=== PATIENT | female | born 1945 | race Caucasian/White ===

== ENCOUNTER 2018-08-05 11:18 | Outpatient (CLI) | payer MEDICARE | END 2018-08-05 11:19 | disposition home or self-care (01) | LOC: BICMAMMO 11:18 | PROVIDERS: ATTEND Internal Medicine | DX: Z12.31 Encounter for screening mammogram for malignant neoplasm of breast (principal) | CPT/HCPCS: 77063; 77067 ==

== ENCOUNTER 2018-12-16 09:02 | Outpatient (CLI) | payer BC, MEDICARE ==
--- NOTE | 2018-12-16 10:04 | ULT ---
RIGHT BREAST ULTRASOUND: History: Right spontaneous nipple discharge. Comparison: Mammogram, 12-16-18, 08-05-18, 07-24-16 Technique: Multiplanar grayscale and color doppler images were obtained in a targeted ultrasound of t he retroareolar region of the right breast. FINDINGS: There is mild ectasia of the ducts beneath the nipple. No mass is seen within any of the ducts. No multani spicious mass or shadowing is seen. At the time of the ultrasound an exam was performed showing dark brown non-bloody nipple discharge from one duct. IMPRESSION: BIRADS category 2 - benign findings. Annual screening mammography is recommended. POS: TOÑA
== END 2018-12-16 09:03 | disposition home or self-care (01) ==
LOC: BICMAMMO 09:02
PROVIDERS: ATTEND Obstetrics & Gynecology
DX: N64.52 Nipple discharge (principal); R92.1 Mammographic calcification found on diagnostic imaging of breast
CPT/HCPCS: G0279

== ENCOUNTER 2019-05-30 20:00 | Observation (INO) | payer BC, MEDICARE ==
[2019-05-30] MEDS ORDERED: Aspirin 325 MG TAB ONE (21:53)
[2019-05-31] MEDS ORDERED: Senokot S 8.6-50 MG TAB PO PRN (00:37)
[2019-05-31] MEDS ORDERED: Acetaminophen 325 MG TAB PO PRN (00:37)
[2019-05-31 01:22] VITALS: BMI 25.8
--- NOTE | 2019-05-31 04:13 | HP ---
CHIEF COMPLAINT: Left-sided weakness and slurred speech. HISTORY OF PRESENT ILLNESS: Ms. Garsia is a 74-year-old female who was initially seen at [facility] for evaluation of left-sided numbness, tingling, and slurred speech. The patient reports these started about 1800 after she received some bad news via telephone. She reports that she noticed that her mouth initially felt like she was getting dental work, it was numb and tingly and then she noticed that the same sensation was down her left arm and leg. She sat down, called her daughter. Her daughter came over, noticed that she had a little bit of slurred speech and then her daughter decided to bring her to the hospital for further evaluation. The patient reports that she stumbled twice going out to the car because she said her left leg was very heavy. These sensations lasted on and off for couple hours and she reports during the exam that they have resolved. She reports the only symptom she has now is that she has a slight headache. CT scan in the other campus was done and had no acute findings. Her initial NIH score was 4. It is currently 0. The patient was transferred to [facility] for admission to Stroke Unit for further management. ALLERGIES: NONE. HOME MEDICATIONS: 1. Norvasc 5 mg p.o. once a day. 2. Estradiol 1 mg oral once a day. 3. Lexapro 10 mg p.o. once a day. 4. Cholestyramine 5.7 g once a day. She reports that she takes this as needed. PAST MEDICAL HISTORY: Pertinent for hypertension, anxiety, and Crohn disease, which she reports is well controlled with diet and then she takes the cholestyramine as needed. FAMILY HISTORY: Father did have a stroke. SOCIAL HISTORY: Lives at home alone. Has family close by. Denies any alcohol or smoking history. SURGICAL HISTORY: Lumpectomy, hysterectomy, bladder mesh, tubal ligation. REVIEW OF SYSTEMS: All systems reviewed and are negative unless mentioned in the HPI. PHYSICAL EXAMINATION: VITAL SIGNS: Blood pressure 172/91, pulse is 77, respirations are pO2 sats are 98% on room air. CONSTITUTIONAL: The patient is afebrile. She appears nontoxic. She is alert and oriented to person, place, and time. HEENT: Head is atraumatic and normocephalic. Eyes; eyelids are normal to inspection. Pupils are equally round and reactive to light. ENT; mouth exam is normal. Mucous membranes are moist. NECK: Normal range of motion. Trachea is midline. RESPIRATORY/CHEST: Breath sounds are clear. There is no sign of any respiratory distress. CARDIOVASCULAR: Regular heart rate and rhythm. Heart sounds are normal. ABDOMEN: No tenderness. Bowel sounds are heard. BACK: Normal inspection. Normal range of motion. EXTREMITIES: Upper extremities; normal range of motion. Motor strength is normal. Radial pulses are equal bilaterally. Lower extremities; normal sensation. Motor strength is normal. Sensation intact. Pedal pulses are equal bilaterally. NEUROLOGIC: The patient is alert and oriented to person, place, and time. There is no focal motor or sensory deficits. SKIN: Warm, dry, and normal in color. IMAGING DATA: EKG in the emergency room shows normal sinus rhythm, rate per minute 91. LAB RESULTS: White blood cell count is 8.5, hemoglobin 14, hematocrit is 42.6, platelets are 283. There is no BMP lab results available in chart. We will repeat these. ASSESSMENT AND PLAN: 1. Transient ischemic attack. We will obtain an MRI of the brain without contrast, carotid Dopplers, echocardiogram, lipids, TSH, stroke team evaluation. We will start aspirin and statin. 2. History of hypertension. We will restart home medications. We will trend. 3. History of Crohn disease, appears stable. Restart home medications as needed. 4. Anxiety. We will restart home medications. 5. Case discussed with Dr. Nicholson who agrees to plan. 6. Gastrointestinal and deep venous thrombosis prophylaxis have been started. 7. Hospital course is dependent on clinical findings. Job ID: [id number]
[2019-05-31 05:29] LABS: #Basophils 0.1 thou/uL (0.0-0.2); #Eosinphils 0.3 thou/uL (0.0-0.7); #Lymphocytes 2.6 thou/uL (1.20-3.40); #Monocytes 0.8 thou/uL (0.11-0.59); #Neutrophils 4.4 thou/uL (1.40-6.50); %Basophils 0.9 % (0.0-1.0); %Eosinophils 3.2 % (0.0-10.0); %Lymphocytes 32.1 % (21.0-51.0); %Monocytes 9.6 % (0.0-10.0); %Neutrophils 54.2 % (42.0-75.0); Hemoglobin 13.5 g/dL (12.0-16.0); Mean Corpuscular HGB CONC 34.6 g/dL (32.0-36.0); Mean Corpuscular Hemoglobin 32.3 pg (27.0-31.0); Mean Corpuscular Volume 93.4 fL (78.0-98.0); Mean Platelet Volume 7.8 fL (7.4-10.4); Platelet Count 264 thou/uL (130-400); RBC Distribution Width 11.4 % (11.5-14.5); Red Blood Cell (RBC) Count 4.18 mill/uL (4.20-5.40); White Blood Cell (WBC) Count 8.1 thou/uL (4.8-10.8)
[2019-05-31 05:49] LABS: ALT (SGPT) 8 U/L (8-55); AST (SGOT) 14 U/L (5-34); Albumin 3.7 g/dL (3.4-4.8); Alkaline Phosphatase 67 U/L (40-150); Anion Gap 11 mmol/L (10-20); BUN (Urea Nitrogen) 17 mg/dL (9.8-20.1); Bilirubin, Total 0.4 mg/dL (0.2-1.2); Calc. Creatinine Clearance 70 mL/min (70-130); Calcium 8.9 mg/dL (7.8-10.44); Carbon Dioxide 26 mmol/L (23-31); Cardiac Risk 4.2 (Less than 4.5); Chloride 107 mmol/L (98-107); Cholesterol 197 mg/dl (< 200 Desired); Estimated GFR-MDRD 73; Globulin 3.3 g/dL (2.4-3.5); Glucose 104 mg/dL (83-110); HDL Cholesterol 47 mg/dL (>60 Neg Risk); LDL Cholesterol, Calculated 118 mg/dL; Potassium 3.7 mmol/L (3.5-5.1); Sodium 140 mmol/L (136-145); Triglycerides 161 mg/dL (Less than 150)
--- NOTE | 2019-05-31 08:01 | ULT ---
EXAM: Carotid Doppler PROVIDED CLINICAL HISTORY: TIA COMPARISON: None FINDINGS: Grayscale and color Doppler sonography with spectral analysis was performed of the extracranial carot id system bilaterally. There is no evidence for a hemodynamically significant internal carotid artery stenosis by peak systolic velocity or ratio criteria. Antegrade flow is seen in the vertebral arteries. Nonspecific increase in peak systolic velocity demonstrated involving the left vertebral artery, which could reflect stenosis. IMPRESSION: No sonographic evidence for a hemodynamically significant internal carotid artery stenosis.
[2019-05-31] MEDS ORDERED: Famotidine 20 MG TAB PO SCH (09:00)
[2019-05-31] MEDS ORDERED: Amlodipine 5 MG TAB PO SCH (09:00)
[2019-05-31] MEDS ORDERED: Prevnar 13-Val Conj/PF 0.5 ML SYRINGE IM ONE (09:00)
[2019-05-31] MEDS ORDERED: Escitalopram Oxalate 10 mg Tablet PO SCH (09:00)
[2019-05-31] MEDS ORDERED: Aspirin 325 mg Enteric Coated Tablet PO SCH (09:00)
--- NOTE | 2019-05-31 10:49 | MRI ---
Exam: Brain MRI without contrast HISTORY: Transient ischemic attack. Left-sided numbness, starting last night. Symptoms have resolved. COMPARISON: None Correlation: Noncontrast head CT, [facility] 05/30/2019 FINDINGS: Calvarial marrow signal intensity: Appropriate T1 signal Gradient echo sequence: No hemorrhage Brain parenchyma: No mass, mass effect or midline shift. Brain volume, age-appropriate. Cortical rene-white matter differentiation: Preserved Restricted diffusion: Central arterial flow voids are maintained. Absent restricted diffusion White matter signal intensities: T2, FLAIR white matter hyperintensities due to chronic small vessel ischemic changes Sinuses: Adequate aeration of the paranasal sinuses and mastoid air cells. IMPRESSION: 1. Absent restricted diffusion. No acute infarct. 2. Chronic small vessel ischemic changes of the white matter.
[2019-05-31 16:15] VITALS: BP 136/71; TEMP 97.7
[2019-05-31] MEDS ORDERED: Atorvastatin Calcium 40 MG TAB PO SCH (21:00)
--- NOTE | 2019-06-01 05:52 | DIS ---
DATE OF ADMISSION: 05/30/2019 DATE OF DISCHARGE: 05/31/2019 CHIEF COMPLAINT ON ADMISSION: Left-sided numbness of the face, left upper extremity and lower extremity along with left-sided weakness. DISCHARGE DIAGNOSES: 1. Transient ischemic attack, MRI shows no evidence of acute cerebrovascular accident. 2. Hypertension. 3. Anxiety. 4. Crohn's disease, stable. BRIEF HOSPITAL COURSE: Ms. Garsia is a very pleasant 74-year-old female who presented with the above complaints that were resolving by the time she reached the hospital. 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 After she got off the phone, she experienced some left-sided facial tingling and numbness as if she had some dental work done. It began to spread down her left arm, and the patient states that she felt generally "unwell." She called her daughter who lives in an upstairs apartment, to check on her. Her symptoms began to worsen some and spread down to the left leg, which subsequently became weak. She stumbled several times getting up to the car, because her leg was "heavy." Her symptoms were brief, lasting only an hour or so, before completely resolving. She had no further recurrence. MRI of the brain was negative. Carotid Doppler was negative. Her echo is currently pending. She was seen by Physical therapy and Occupational therapy who could discern no deficits at all. She has ambulated the halls and feels back to her baseline. She has been initiated on aspirin and statin therapy, which she is tolerating well. TEST PENDING AT DISCHARGE: Echocardiogram. PRIMARY CARE PHYSICIAN: Dr. Brower. DISHARGE DISPOSITION: Home. DISCHARGE CONDITION: Stable. DISCHARGE INSTRUCTIONS AND FOLLOWUP: The patient's new home medications will be aspirin 81 mg daily along with Lipitor 10 mg at bedtime. I have stopped her estrogen replacement at this time and advised her to discuss that with both her building rigger and her PCP, as there is a some evidence that estrogen replacement postmenopausal is linked to increased risk of vascular events. The patient agrees with the plan and will follow up with her PCP and building rigger. I advised aggressive risk factor modification including control of her hypertension, low-sodium diet, along with heart healthy diet. She understands recommendations. She will be discharged home in good condition today with followup with Dr. Brower. Job ID: [id number]
== END 2019-05-31 16:48 | disposition home or self-care (01) ==
LOC: ERS 20:00 → 2SE 23:02
PROVIDERS: ADMIT Hospitalist; ATTEND Hospitalist
DX: G45.9 Transient cerebral ischemic attack, unspecified (principal); I10 Essential (primary) hypertension; F41.9 Anxiety disorder, unspecified; K50.90 Crohn's disease, unspecified, without complications; Z79.899 Other long term (current) drug therapy
CPT/HCPCS: 36415; 70551; 80053; 80061; 84443; 85025; 93306; 93880; 99285; G0378

== ENCOUNTER 2022-07-04 15:43 | Outpatient (CLI) | payer OTHER, MEDICARE | END 2022-07-04 15:44 | disposition home or self-care (01) | LOC: BICMAMMO 15:43 | PROVIDERS: ATTEND Internal Medicine | DX: Z12.31 Encounter for screening mammogram for malignant neoplasm of breast (principal); Z91.89 Other specified personal risk factors, not elsewhere classified; Z98.82 Breast implant status | CPT/HCPCS: 77063; 77067 ==

== ENCOUNTER 2022-11-16 09:09 | Inpatient (IN) | payer OTHER, MEDICARE ==
[2022-11-16 10:50] LABS: %Basophils 0.1 % (0.0-1.0); %Eosinophils 0.3 % (0.0-10.0); %Lymphocytes 16.4 % (21.0-51.0); %Monocytes 8.6 % (0.0-10.0); %Neutrophils 74.6 % (42.0-75.0); Hemoglobin 13.5 g/dL (12.0-16.0); Mean Corpuscular HGB CONC 33.4 g/dL (32.0-36.0); Mean Corpuscular Hemoglobin 30.8 pg (27.0-31.0); Mean Corpuscular Volume 92.2 fl (78.0-98.0); Mean Platelet Volume 7.6 fL (7.4-10.4); Platelet Count 387 10x3/uL (130-400); RBC Distribution Width 11.5 % (11.5-14.5)
[2022-11-16 11:02] LABS: ALT (SGPT) 18 U/L (8-55); AST (SGOT) 29 U/L (5-34); Albumin 3.1 g/dL (3.4-4.8); Alkaline Phosphatase 77 U/L (40-110); Anion Gap 16 mmol/L (10-20); BUN (Urea Nitrogen) 11 mg/dL (9.8-20.1); Bilirubin, Total 0.5 mg/dL (0.2-1.2); Calc. Creatinine Clearance 0 mL/min (70-130); Calcium 8.7 mg/dL (7.8-10.44); Carbon Dioxide 19 mmol/L (23-31); Chloride 106 mmol/L (98-107); Estimated GFR 71; Globulin 3.5 g/dL (2.4-3.5); Glucose 95 mg/dL (83-110); Lipase 67 U/L (8-78); Potassium 3.2 mmol/L (3.5-5.1); Protein, Total 6.6 g/dL (5.8-8.1); Sodium 138 mmol/L (136-145)
[2022-11-16] MEDS ORDERED: Morphine 2 MG/ML VIAL ONE ×2 (13:07→18:15)
[2022-11-16] MEDS ORDERED: Ondansetron PF 4 MG/2 ML Vial ONE (13:07)
[2022-11-16] MEDS ORDERED: Ondansetron PF 4 MG/2 ML Vial IVP PRN (15:05)
[2022-11-16] MEDS ORDERED: Acetaminophen 325 MG TAB PO PRN (15:05)
[2022-11-16] MEDS ORDERED: Ondansetron ODT 4 MG TAB PO PRN (15:05)
[2022-11-16 16:43] LABS: SARS-CoV-2 NAA Rapid Test Not Detected (NotDetected)
[2022-11-16] MEDS ORDERED: Levofloxacin 500 mg/D5W 100 ml Premix Bag ONE (17:17)
[2022-11-16] MEDS: Sodium Chloride 0.9% 1,000 ML IV SCH (17:28)
[2022-11-16] MEDS: Morphine 2 MG/ML VIAL SLOW IVP PRN (18:19)
[2022-11-16] MEDS ORDERED: Famotidine 20 MG TAB ONE (21:02)
[2022-11-16] MEDS ORDERED: metroNIDAZOLE 500 MG/100 ML BAG ONE (21:02)
[2022-11-16] MEDS: Famotidine 20 MG TAB PO SCH (21:10)
[2022-11-16] MEDS: metroNIDAZOLE 500 MG in Premix Bag 1 BAG IVPB SCH (21:10)
[2022-11-17] MEDS: Morphine 2 MG/ML VIAL SLOW IVP PRN (04:25)
[2022-11-17] MEDS: Sodium Chloride 0.9% 1,000 ML IV SCH ×2 (04:25→22:25)
[2022-11-17] MEDS: metroNIDAZOLE 500 MG in Premix Bag 1 BAG IVPB SCH ×3 (05:15→22:24)
[2022-11-17 05:41] LABS: #Monocytes 1.3 thou/uL (0.11-0.59); #Neutrophils 13.6 thou/uL (1.40-6.50); %Basophils 0.1 % (0.0-1.0); %Eosinophils 0.1 % (0.0-10.0); %Lymphocytes 11.5 % (21.0-51.0); %Monocytes 7.8 % (0.0-10.0); %Neutrophils 80.5 % (42.0-75.0); Hemoglobin 13.5 g/dL (12.0-16.0); Mean Corpuscular HGB CONC 33.2 g/dL (32.0-36.0); Mean Corpuscular Hemoglobin 31.1 pg (27.0-31.0); Mean Corpuscular Volume 93.6 fl (78.0-98.0); Mean Platelet Volume 7.4 fL (7.4-10.4); Platelet Count 351 10x3/uL (130-400); RBC Distribution Width 11.5 % (11.5-14.5); Red Blood Cell (RBC) Count 4.33 mill/uL (4.20-5.40)
[2022-11-17 06:03] LABS: Anion Gap 14 mmol/L (10-20); BUN (Urea Nitrogen) 10 mg/dL (9.8-20.1); Calc. Creatinine Clearance 0 mL/min (70-130); Calcium 8.1 mg/dL (7.8-10.44); Carbon Dioxide 20 mmol/L (23-31); Chloride 106 mmol/L (98-107); Estimated GFR 73; Glucose 110 mg/dL (83-110); Sodium 137 mmol/L (136-145)
[2022-11-17] MEDS ORDERED: Fleet Enema 133 ML BOT PR SCH (08:00)
[2022-11-17] MEDS ORDERED: Potassium Chloride 20 MEQ TAB PO SCH (08:00)
[2022-11-17] MEDS: Famotidine 20 MG TAB PO SCH (08:14)
[2022-11-17 08:22] VITALS: BMI 22.8
[2022-11-17] MEDS ORDERED: PROPOFOL 200 MG/20 ML VIAL ONE (11:15)
[2022-11-17] MEDS ORDERED: Fentanyl 100 MCG/2 ML VIAL ONE (12:07)
[2022-11-17] MEDS: methylPREDNISolone Sod Succ 40 MG VIAL IVP SCH ×2 (12:32→17:44)
[2022-11-17] MEDS: Atorvastatin Calcium 20 MG TAB PO SCH (19:51)
[2022-11-18] MEDS: methylPREDNISolone Sod Succ 40 MG VIAL IVP SCH ×4 (00:05→17:01)
[2022-11-18 05:40] LABS: #Lymphocytes 1.1 thou/uL (1.20-3.40); #Monocytes 0.1 thou/uL (0.11-0.59); #Neutrophils 10.2 thou/uL (1.40-6.50); %Eosinophils 0.2 % (0.0-10.0); %Lymphocytes 9.5 % (21.0-51.0); %Monocytes 0.9 % (0.0-10.0); %Neutrophils 89.3 % (42.0-75.0); Hemoglobin 12.9 g/dL (12.0-16.0); Mean Corpuscular HGB CONC 32.9 g/dL (32.0-36.0); Mean Corpuscular Hemoglobin 31.1 pg (27.0-31.0); Mean Corpuscular Volume 94.7 fl (78.0-98.0); Mean Platelet Volume 7.8 fL (7.4-10.4); Platelet Count 340 10x3/uL (130-400); RBC Distribution Width 11.6 % (11.5-14.5); Red Blood Cell (RBC) Count 4.16 mill/uL (4.20-5.40); White Blood Cell (WBC) Count 11.5 10x3/uL (4.8-10.8)
[2022-11-18] MEDS: metroNIDAZOLE 500 MG in Premix Bag 1 BAG IVPB SCH ×3 (05:47→21:24)
[2022-11-18 05:55] LABS: Anion Gap 13 mmol/L (10-20); BUN (Urea Nitrogen) 12 mg/dL (9.8-20.1); CRP (Inflammatory) 5.37 mg/dL (= or < 0.5); Calc. Creatinine Clearance 62 mL/min (70-130); Calcium 8.2 mg/dL (7.8-10.44); Carbon Dioxide 19 mmol/L (23-31); Chloride 109 mmol/L (98-107); Estimated GFR 84; Glucose 182 mg/dL (83-110); Potassium 3.8 mmol/L (3.5-5.1); Sodium 137 mmol/L (136-145)
[2022-11-18] MEDS: Amlodipine 5 MG TAB PO SCH (08:40)
[2022-11-18] MEDS: Estradiol 1 MG TAB PO SCH (09:23)
[2022-11-18] MEDS: Escitalopram Oxalate 10 mg Tablet PO SCH (09:23)
[2022-11-18] MEDS: Sodium Chloride 0.9% 1,000 ML IV SCH ×2 (19:49→21:22)
[2022-11-18] MEDS: Atorvastatin Calcium 20 MG TAB PO SCH (21:21)
[2022-11-19] MEDS: methylPREDNISolone Sod Succ 40 MG VIAL IVP SCH ×2 (00:11→05:53)
[2022-11-19] MEDS: metroNIDAZOLE 500 MG in Premix Bag 1 BAG IVPB SCH (05:53)
[2022-11-19 09:18] VITALS: BP 150/72; TEMP 98.1
[2022-11-19] MEDS: Estradiol 1 MG TAB PO SCH (09:36)
[2022-11-19] MEDS: Amlodipine 5 MG TAB PO SCH (09:37)
[2022-11-19] MEDS: Escitalopram Oxalate 10 mg Tablet PO SCH (09:37)
== END 2022-11-19 12:30 | disposition home or self-care (01) | DRG 387 ==
LOC: ERS 09:09 → ERHOLD 14:03 → SURG A 23:06 → OBSVTOIN 11-17 15:05
PROVIDERS: ADMIT Internal Medicine; ATTEND Internal Medicine
PROC: 0DBG8ZX Excision of Left Large Intestine, Via Natural or Artificial Opening Endoscopic, Diagnostic (ICD-10-PCS; principal; 2022-11-17)
PROC: 0DBF8ZX Excision of Right Large Intestine, Via Natural or Artificial Opening Endoscopic, Diagnostic (ICD-10-PCS; 2022-11-17)
DX: K50.918 Crohn's disease, unspecified, with other complication (principal); I10 Essential (primary) hypertension; D64.9 Anemia, unspecified; F32.A Depression, unspecified; E87.6 Hypokalemia; K21.9 Gastro-esophageal reflux disease without esophagitis; D72.829 Elevated white blood cell count, unspecified; T38.0X5A Adverse effect of glucocorticoids and synthetic analogues, initial encounter; Z79.82 Long term (current) use of aspirin; Z79.899 Other long term (current) drug therapy; Z90.49 Acquired absence of other specified parts of digestive tract; Z90.710 Acquired absence of both cervix and uterus
CPT/HCPCS: 36415; 80048; 80053; 83690; 84484; 85025; 85652; 86140; 88305; 93005; 96374; 96375; 96376; G0378; J1956; J2272; J2405; J2704; J2920; J3010; J7050; Q0162; U0002

== ENCOUNTER 2023-06-15 10:00 | Day surgery (SDC) | payer MEDICARE ==
[~2023-06-15 10:00] MED LIST: EPINEPHrine 1 MG/ML AMP IM PRN; Sodium Chloride 0.9% 500 ML IV PRN; Vedolizumab 300 MG in Sodium Chloride 0.9% 250 ML 250 ML IVPB SCH; diphenhydrAMINE 50 MG/ML VIAL IVP PRN
[2023-06-15 11:08] VITALS: BP 164/69; TEMP 98
== END 2023-06-15 11:55 | disposition home or self-care (01) ==
LOC: ONC/OP 10:00
PROVIDERS: ATTEND Internal Medicine Gastroenterology
DX: K50.90 Crohn's disease, unspecified, without complications (principal)
CPT/HCPCS: 96413

== ENCOUNTER 2023-08-10 08:59 | Day surgery (SDC) | payer MEDICARE ==
[2023-08-10] MEDS ORDERED: Vedolizumab 300 MG in Sodium Chloride 0.9% 250 ML 250 ML IVPB SCH (10:00)
[2023-08-10 10:18] VITALS: BP 147/72; TEMP 98.3
== END 2023-08-10 10:55 | disposition home or self-care (01) ==
LOC: ONC/OP 08:59
PROVIDERS: ATTEND Internal Medicine Gastroenterology
DX: K50.90 Crohn's disease, unspecified, without complications (principal)
CPT/HCPCS: 96413; J3380; J7050

== ENCOUNTER 2023-10-05 09:02 | Day surgery (SDC) | payer MEDICARE ==
[~2023-10-05 09:02] MED LIST changes: -EPINEPHrine 1 MG/ML AMP IM PRN; -Sodium Chloride 0.9% 500 ML IV PRN; -diphenhydrAMINE 50 MG/ML VIAL IVP PRN
[2023-10-05 10:11] VITALS: BP 139/63; TEMP 98.1
[2023-10-05] MEDS ORDERED: FLU VACC QS2023(65UP)/MF59C/PF 60 MCG/0.5 ML SYRINGE IM ONE (10:30)
== END 2023-10-05 10:55 | disposition home or self-care (01) ==
LOC: ONC/OP 09:02
PROVIDERS: ATTEND Internal Medicine Gastroenterology
DX: K50.90 Crohn's disease, unspecified, without complications (principal)
CPT/HCPCS: 96413; J3380; J7050

== ENCOUNTER 2024-01-24 08:45 | Day surgery (SDC) | payer MEDICARE, OTHER ==
[2024-01-24] MEDS: Vedolizumab 300 MG in Sodium Chloride 0.9% 250 ML 250 ML IVPB SCH (10:10)
[2024-01-24 11:05] VITALS: BP 151/68; TEMP 98
== END 2024-01-24 11:06 | disposition home or self-care (01) ==
LOC: ONC/OP 08:45
PROVIDERS: ATTEND Internal Medicine Gastroenterology
DX: K50.90 Crohn's disease, unspecified, without complications (principal)
CPT/HCPCS: 96413; J3380; J7050

== ENCOUNTER 2024-03-20 08:42 | Day surgery (SDC) | payer MEDICARE ==
[2024-03-20 10:02] VITALS: BP 119/67; TEMP 97.9
[2024-03-20] MEDS: Vedolizumab 300 MG in Sodium Chloride 0.9% 250 ML 250 ML IVPB SCH (10:02)
== END 2024-03-20 10:57 | disposition home or self-care (01) ==
LOC: ONC/OP 08:42
PROVIDERS: ATTEND Internal Medicine Gastroenterology
DX: K50.90 Crohn's disease, unspecified, without complications (principal)
CPT/HCPCS: 96413; J3380; J7050

== ENCOUNTER 2024-05-15 08:50 | Day surgery (SDC) | payer MEDICARE, SELFPAY ==
[2024-05-15 09:39] VITALS: BP 106/58; TEMP 97.8
[2024-05-15] MEDS: Vedolizumab 300 MG, Sterile Water 5 ML in Sodium Chloride 0.9% 250 ML 250 ML IVPB SCH (10:37)
== END 2024-05-15 11:28 | disposition home or self-care (01) ==
LOC: ONC/OP 08:50
PROVIDERS: ATTEND Internal Medicine Gastroenterology
DX: K50.90 Crohn's disease, unspecified, without complications (principal)
CPT/HCPCS: 96413; J3380; J7050

== ENCOUNTER 2024-09-04 08:44 | Day surgery (SDC) | payer MEDICARE ==
[2024-09-04 09:38] VITALS: BP 126/59; TEMP 98.3
[2024-09-04] MEDS: Vedolizumab 300 MG, Sterile Water 5 ML in Sodium Chloride 0.9% 250 ML 250 ML IVPB SCH (10:06)
== END 2024-09-04 11:38 | disposition home or self-care (01) ==
LOC: ONC/OP 08:44
PROVIDERS: ATTEND Internal Medicine Gastroenterology
DX: K50.90 Crohn's disease, unspecified, without complications (principal)
CPT/HCPCS: 96413; J3380; J7050

== ENCOUNTER 2024-10-30 08:45 | Day surgery (SDC) | payer MEDICARE ==
[2024-10-30] MEDS ORDERED: Acetaminophen 500 MG TAB ONE (08:50)
[2024-10-30] MEDS: Acetaminophen 500 MG TAB PO SCH (08:51)
[2024-10-30] MEDS: Vedolizumab 300 MG, Sterile Water 5 ML in Sodium Chloride 0.9% 250 ML 250 ML IVPB SCH (09:45)
[2024-10-30 10:51] VITALS: BP 125/63; TEMP 98.3
== END 2024-10-30 10:53 | disposition home or self-care (01) ==
LOC: ONC/OP 08:45
PROVIDERS: ATTEND Internal Medicine Gastroenterology
DX: K50.90 Crohn's disease, unspecified, without complications (principal)
CPT/HCPCS: 96413; J3380; J7050

== ENCOUNTER 2025-06-11 09:00 | Day surgery (SDC) | payer MEDICARE ==
[2025-06-11 10:14] VITALS: BP 128/60; TEMP 97.6
[2025-06-11] MEDS: Vedolizumab 300 MG, Sterile Water 5 ML in Sodium Chloride 0.9% 250 ML 250 ML IVPB SCH (10:15)
[2025-06-11] MEDS ORDERED: PNEUMOC 20-VAL CONJ-DIP CRM/PF 0.5 ML SYRINGE IM ONE (11:15)
== END 2025-06-11 11:08 | disposition home or self-care (01) ==
LOC: ONC/OP 09:00
PROVIDERS: ATTEND Internal Medicine Gastroenterology
DX: K50.90 Crohn's disease, unspecified, without complications (principal)
CPT/HCPCS: 96413; J3380; J7050

== ENCOUNTER 2025-10-01 08:52 | Day surgery (SDC) | payer MEDICARE ==
[2025-10-01] MEDS: Vedolizumab 300 MG, Sterile Water 5 ML in Sodium Chloride 0.9% 250 ML 250 ML IVPB SCH (09:57)
[2025-10-01 10:18] VITALS: BP 142/67; TEMP 98.3
== END 2025-10-01 10:47 | disposition home or self-care (01) ==
LOC: ONC/OP 08:52
PROVIDERS: ATTEND Internal Medicine Gastroenterology
DX: K50.90 Crohn's disease, unspecified, without complications (principal)
CPT/HCPCS: 96413; J3380; J7050